=== PATIENT | male | born 1935 | race Caucasian/White ===

== ENCOUNTER 2021-04-09 13:45 | Inpatient (IN) | payer BC ==
[~2021-04-09] VITALS: Ht 170.2 cm; Wt 90.7 kg
[2021-04-09] MEDS ORDERED: IV NORMAL SALINE 500 ML BAG IV ONE (14:00)
[2021-04-09] MEDS ORDERED: HYDROMORPHONE 1 MG/1 ML DISP.SYRIN IV ONE ×4 (14:00→21:15)
[2021-04-09] MEDS ORDERED: LIPITOR (14:05)
[2021-04-09] MEDS ORDERED: NORVASC (14:05)
[2021-04-09] MEDS ORDERED: VALTREX (14:05)
[2021-04-09] MEDS ORDERED: SYNTHROID (14:05)
[2021-04-09] MEDS ORDERED: NEURONTIN (14:05)
[2021-04-09] MEDS ORDERED: METFORMIN (14:05)
[2021-04-09] MEDS ORDERED: HYDROMORPHONE 1 MG/1 ML DISP.SYRIN ONE ×4 (14:24→21:34)
[2021-04-09 14:40] LABS: HEMATOCRIT 38.4 % (36.7-47.1); MEAN CORPUSCULAR HEMOGLOBIN 28.3 uug (23.8-33.4); MEAN CORPUSCULAR VOLUME 83.8 fL (73.0-96.2); PLATELET COUNT (AUTO) 431 K/uL (152-348)
[2021-04-09 14:47] LABS: CARBON DIOXIDE 24 mmol/L (21-32); CHLORIDE 103 mmol/L (98-107); CREATININE 1.6 mg/dL (0.6-1.3); GLUCOSE 107 mg/dL (74-106); POTASSIUM 3.5 mmol/L (3.5-5.1); UREA NITROGEN, BLOOD 42 mg/dL (7-18)
[2021-04-09 14:53] LABS: ALANINE AMINOTRANSFERASE 17 U/L (16-63); ALKALINE PHOSPHATASE 54 U/L (50-136); ASPARTATE AMINOTRANSFERASE 16 U/L (15-37); BILIRUBIN,DIRECT 0.1 mg/dL (0.0-0.2); BILIRUBIN,TOTAL 0.3 mg/dL (0.2-1.0); TOTAL PROTEIN, SERUM 7.3 g/dL (6.4-8.2)
[2021-04-09 14:55] LABS: ACETAMINOPHEN < 2.0 ug/mL (10-30)
[2021-04-09 14:58] LABS: MAGNESIUM 1.9 mg/dL (1.8-2.4); PHOSPHOROUS 3.1 mg/dL (2.5-4.9)
[2021-04-09 15:00] LABS: THYROID STIMULATING HORMONE 2.352 mIU/mL (0.358-3.740)
[2021-04-09] MEDS ORDERED: IV NS 1000 ML 1,000 ML IV ONE (15:15)
[2021-04-09 16:08] LABS: ETHANOL < 3 MG/DL (0-0)
[2021-04-09] MEDS ORDERED: VANCOMYCIN IV 1,500 MG in IV DEXTROSE 5% 500 ML IV STA (16:55)
[2021-04-09] MEDS ORDERED: CEFTRIAXONE 2 G in IV DEXTROSE 5% 100 ML IV ONE (17:00)
[2021-04-09] MEDS ORDERED: VANCOMYCIN IV 200 ML ONE (17:50)
--- NOTE | 2021-04-09 19:15 | NUR ---
Assumed care of patient from day shift nurse Diane. Patient is here for c/o of pain on neck area d/t shingles.
[2021-04-09] MEDS ORDERED: CEFTRIAXONE 1 G VIAL ONE (20:00)
[2021-04-09] MEDS ORDERED: VANCOMYCIN HCL 500 MG VIAL ONE (20:00)
[2021-04-09] MEDS ORDERED: CEFTRIAXONE /D5W 50ML IVPB **ER PYXIS IV ONE (20:00)
--- NOTE | 2021-04-09 20:35 | NUR ---
Epic panel call placed, spoke to Ritika, stated she will get a hold of SHOW WORKER Angelica for admitting.
--- NOTE | 2021-04-09 20:38 | NUR ---
Dr Snell on panel call with MICHELLE Dominguez. Patient accepted for admission to tele unit, Dx janice Nava.
[2021-04-09] MEDS ORDERED: MAGNESIUM HYDROXIDE 30 ML LIQUID UDC PO PRN (20:45)
[2021-04-09] MEDS ORDERED: ONDANSETRON 4 MG/2 ML VIAL IV PRN (20:45)
[2021-04-09] MEDS ORDERED: Z GUARD REMEDY PASTE 57 GM TUBE TOP PRN (20:45)
[2021-04-09] MEDS ORDERED: GABAPENTIN 400 MG CAPSULE PO SCH (21:00)
--- NOTE | 2021-04-09 22:50 | NUR ---
Pt. admitted to telemetry floor, room 329, under care of MICHELLE Dominguez. Belongs List completed
--- NOTE | 2021-04-09 22:55 | NUR ---
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 PATIENT ASSISTED TO TOILET FOR ELIMINATIONS, COOPERATIVE WITH CARE AT THIS TIME. CONT TO MONITOR. PATIENT HAS NO SOB NO CHEST PAIN, TELE MONITOR SINUS RHYTHM SINUS NELSON, CONT TO MONITOR.
[2021-04-10] MEDS: ENOXAPARIN SODIUM 40 MG/0.4 ML DISP.SYRIN SQ SCH ×3 (00:09→09:00)
[2021-04-10 00:11] VITALS: BP 124/51
[2021-04-10] MEDS: MORPHINE SULFATE 2 MG/1 ML DISP.SYRIN IV PRN ×4 (02:08→21:18)
--- NOTE | 2021-04-10 03:29 | NUR ---
PATIENT RESTLESS, PACING, AGITATED, NOTIFY DR. BROWN WITH ORDER.
[2021-04-10] MEDS ORDERED: HALOPERIDOL DECANOATE 50 MG/1 ML AMPUL IM PRN ×2 (03:30→03:45)
[2021-04-10] MEDS ORDERED: HALOPERIDOL LACTATE 5 MG/1 ML VIAL IM PRN (04:00)
[2021-04-10 04:29] VITALS: BP 125/49
--- NOTE | 2021-04-10 06:38 | NUR ---
PATIENT ASLEEP BUT AROUSABLE, PATIENT CALM DOWN AT AWHILE, TELE MONITOR SINUS RHYTHM SINUS NELSON ON 50'S, PATIENT COMPLAIN OF PAIN ON POSTERIOR NECK SHINGLES, WILL MEDICATED ORDER, PATIENT REMAIN ON CONTACT ISOLATION, CONT TO MONITOR.
[2021-04-10 07:06] LABS: HEMATOCRIT 39.1 % (36.7-47.1); MEAN CORPUSCULAR HEMOGLOBIN 28.5 uug (23.8-33.4); MEAN CORPUSCULAR VOLUME 84.8 fL (73.0-96.2); PLATELET COUNT (AUTO) 456 K/uL (152-348)
[2021-04-10 07:31] LABS: CREATININE 1.2 mg/dL (0.6-1.3); PHOSPHOROUS 3.2 mg/dL (2.5-4.9); POTASSIUM 3.9 mmol/L (3.5-5.1)
[2021-04-10] MEDS ORDERED: GABAPENTIN 300 MG CAPSULE PO SCH ×2 (09:24→12:45)
[2021-04-10 11:46] VITALS: BP 94/36
[2021-04-10] MEDS ORDERED: METF-440 PO (13:40)
[2021-04-10] MEDS ORDERED: GABA-532 PO (13:45)
[2021-04-10] MEDS ORDERED: OLME1TAB19 PO (13:45)
[2021-04-10] MEDS: GABAPENTIN 300 MG CAPSULE PO SCH ×2 (15:09→20:00)
[2021-04-10 15:52] VITALS: BP 116/49
[2021-04-10] MEDS: METFORMIN HCL 500 MG TABLET PO SCH (17:46)
--- NOTE | 2021-04-10 19:35 | NUR ---
Patient resting in bed. AOx1-2. forgetful. On room air. No signs of acute distress. Patient complained of pain, Morphine PRN given as ordered. Patient has episodes of confusion trying to walk out of room. Patient redirectable. Patient compliant with medications and care. Will endorse to incoming shift for continuity of care.
[2021-04-10 20:25] VITALS: BP 118/54
[2021-04-11] MEDS: ENOXAPARIN SODIUM 40 MG/0.4 ML DISP.SYRIN SQ SCH ×2 (02:42→21:00)
--- NOTE | 2021-04-11 03:00 | NUR ---
patient refused lovenox. patient complain of pain of posterior neck but refused pain medications.
[2021-04-11 04:21] VITALS: BP 104/47
[2021-04-11] MEDS: GABAPENTIN 300 MG CAPSULE PO SCH ×3 (06:31→21:13)
[2021-04-11] MEDS: METFORMIN HCL 500 MG TABLET PO SCH ×2 (08:22→16:58)
[2021-04-11] MEDS: MORPHINE SULFATE 2 MG/1 ML DISP.SYRIN IV PRN ×2 (10:26→14:32)
[2021-04-11 12:00] VITALS: BP 111/50
[2021-04-11] MEDS ORDERED: PREGABALIN 50 MG CAPSULE PO SCH (12:00)
[2021-04-11] MEDS ORDERED: LIDOCAINE 5% OINT 35.44 GM TUBE TOP PRN (12:30)
[2021-04-11] MEDS: PREGABALIN 25 MG CAPSULE PO SCH ×2 (13:06→21:14)
[2021-04-11 16:00] VITALS: BP 103/45
--- NOTE | 2021-04-11 17:28 | NUR ---
Patient is AOx1-2. forgetful. On room air. No signs of acute distress. Patient complained of pain, Morphine PRN given as ordered. Patient has episodes of confusion attempted to get out of bed at time.. Patient needs redirect at all time. Patient compliant with medications and care. Will endorse to incoming shift for continuity of care.
[2021-04-11 20:18] VITALS: BP 105/52
--- NOTE | 2021-04-12 03:20 | NUR ---
Received pt on bed with no respiratory distress noted. He is alert and oriented 1-2, forgetful. Refused Lovenox, per pt he cannot tolerate any pain. Risks and benefits explained, still refused. Oral meds given and tolerated well. All needs attended. Call light placed within reach and encouraged to use for assistance. Will continue to monitor.
[2021-04-12 04:47] VITALS: BP 123/53
[2021-04-12] MEDS: GABAPENTIN 300 MG CAPSULE PO SCH ×3 (05:17→21:27)
[2021-04-12] MEDS: PREGABALIN 25 MG CAPSULE PO SCH (05:18)
[2021-04-12] MEDS: MORPHINE SULFATE 2 MG/1 ML DISP.SYRIN IV PRN (05:33)
--- NOTE | 2021-04-12 06:07 | NUR ---
Pt slept intermittently throughout the night, easily arousable for care. On room air, no respiratory distress noted. New IV line inserted on R hand #20, c/o pain 8/10 with morphine IN PRN given. All needs attended. Frequent visual checks done. Will endorse for continuity of care.
[2021-04-12 06:18] LABS: HEMATOCRIT 35.7 % (36.7-47.1); MEAN CORPUSCULAR HEMOGLOBIN 27.9 uug (23.8-33.4); MEAN CORPUSCULAR VOLUME 85.5 fL (73.0-96.2); PLATELET COUNT (AUTO) 384 K/uL (152-348)
[2021-04-12 06:45] LABS: CARBON DIOXIDE 29 mmol/L (21-32); CHLORIDE 107 mmol/L (98-107); CREATININE 1.4 mg/dL (0.6-1.3); GLUCOSE 94 mg/dL (74-106); MAGNESIUM 2.1 mg/dL (1.8-2.4); POTASSIUM 3.8 mmol/L (3.5-5.1); UREA NITROGEN, BLOOD 36 mg/dL (7-18)
--- NOTE | 2021-04-12 07:20 | NUR ---
Received patient asleep in bed. AOx2-3. On room air. No signs of acute distress. Bed locked and in low position fo safety. Call light within reach. Will continue to monitor.
[2021-04-12] MEDS: METFORMIN HCL 500 MG TABLET PO SCH ×2 (08:27→17:10)
[2021-04-12] MEDS: IV NS 1000 ML 1,000 ML IV PRN (11:03)
[2021-04-12 11:55] VITALS: BP 102/50
[2021-04-12] MEDS ORDERED: LEVOTHYROXINE SODIUM 75 MCG TABLET PO ONE (13:50)
[2021-04-12 15:56] VITALS: BP 118/48
[2021-04-12] MEDS: ASPIRIN EC 325 MG TABLET.DR PO PRN (17:10)
[2021-04-12] MEDS: PREGABALIN 50 MG CAPSULE PO SCH ×2 (17:10→23:20)
--- NOTE | 2021-04-12 18:42 | NUR ---
Patient resting in bed. AOx2-3, forgetful at times. On room air. No signs of acute distress. Patient complained of pain, pain medications given. IV access patent and intact. Compliant with medications and care. Safety measures provided. Needs anticipated and met. Call light within reach. Will endorse to incoming shift for continuity of care.
--- NOTE | 2021-04-12 19:50 | NUR ---
PATIENT ALERT BUT FORGETFUL, NO SOB NO CHEST PAIN, CONT ON PAIN MANAGEMENT DUE SHINGLES ON POSTERIOR NECT, R EAR, UPPER CHEST. PATIENT USES URINAL FOR ELIMINATIONS, PATIENT MULTIPLE SHINGLES SITE STILL OPEN, KEPT SITE CLEAN AND DRY, PROVIDE CLEAN LINEN. CONT TO MONITOR.
[2021-04-12 20:00] VITALS: BP 119/57
[2021-04-12] MEDS ORDERED: PREGABALIN 50 MG CAPSULE PO SCH (21:00)
[2021-04-12] MEDS: DULOXETINE 30 MG CAPSULE.DR PO SCH (21:25)
[2021-04-13] MEDS: ACETAMINOPHEN 325 MG TABLET PO PRN ×2 (02:56→08:30)
[2021-04-13 04:00] VITALS: BP 114/53
[2021-04-13] MEDS: GABAPENTIN 300 MG CAPSULE PO SCH ×2 (05:57→20:06)
[2021-04-13] MEDS: LEVOTHYROXINE SODIUM 75 MCG TABLET PO SCH (06:02)
--- NOTE | 2021-04-13 07:07 | NUR ---
PATIENT ASLEEP BUT AROUSABLE, NO SOB NO CHEST PAIN, CONT ON PAIN MANAGEMENT DUE POSTERIOR NECK, RIGHT EAR, UPPER CHEST SHINGLES. PATIENT COOPERATIVE WITH CARE AT THIS TIME, REMAINS ON CONTACT ISOLATION,
--- NOTE | 2021-04-13 07:12 | NUR ---
MEDICATION LYRICA NOT AVAILABLE WILL ENDORSED TO NEXT SHIFT.
--- NOTE | 2021-04-13 07:30 | NUR ---
awake, in the bathroom. no acute distress. iv intact and fluids ongoing. c/o pain in the back of neck and wants medication. informed him i'll see what he has. assisted back to bed. safety measures on. kept comfortable. call light in reach.
[2021-04-13 08:20] VITALS: BP 116/83
[2021-04-13] MEDS: METFORMIN HCL 500 MG TABLET PO SCH ×2 (08:29→18:21)
[2021-04-13] MEDS: ENOXAPARIN SODIUM 40 MG/0.4 ML DISP.SYRIN SQ SCH (08:41)
--- NOTE | 2021-04-13 08:42 | NUR ---
re: Vilma- unable to retrieve. not enough loaded in [employer]. pharmacy aware and will send medication.
[2021-04-13] MEDS: PREGABALIN 50 MG CAPSULE PO SCH ×3 (09:25→21:46)
--- NOTE | 2021-04-13 11:38 | NUR ---
called back dtr eric gayle and left .
[2021-04-13 12:00] VITALS: BP 104/54
[2021-04-13] MEDS ORDERED: OXYCODONE/APAP 5-325 MG TABLET PO ONE ×2 (13:15→19:45)
[2021-04-13 16:25] VITALS: BP 98/56
[2021-04-13] MEDS: IV NS 1000 ML 1,000 ML IV PRN (16:35)
--- NOTE | 2021-04-13 18:30 | NUR ---
contacted dr. ramirez about patient's request for pain medication tonight and that dtr wants to speak with him but no reply. informed security operations specialist jessica. will endorse
--- NOTE | 2021-04-13 18:58 | NUR ---
no acute distress. iv fluids ongoing tolerated. safety measures kept in place. will endorse accordingly.
--- NOTE | 2021-04-13 19:38 | NUR ---
Pt had unwitnessed fall in his room. Per patient's info, he was going to the station to ask for pain medication suddenly felt dizzy and got down on one knee and slowly laid down on the floor. No acute distress noted. Assisted back to bed. Pt said he didn't hit his head. No open wound. VS 116/50, t 98, hr 62, rr18 96% on room air. No sob. Informed [employer] Technologist with order for percocet 5/325 x 1 dose and PT eval noted. Called dtr Maria M Conley but no answer and unable to leave message due to vm full. Charge nurses aware. Endorsed.
[2021-04-13] MEDS: DULOXETINE 30 MG CAPSULE.DR PO SCH (20:06)
--- NOTE | 2021-04-13 20:30 | NUR ---
PATIENT IN BED ALERT AWAKE, ABLE TO MOVED ALL FOUR EXTREMITIES WITHOUT DIFFICULTY, NO VISIBLE SIGNS OF INJURY, PATIENT COMPLAIN OF PAIN ON POSTERIOR NECK AND R EAR SHINGLES RASHES, GIVEN PO PAIN MEDICATIONS ORDERED. PATIENT WAS MOVED TO A ROOM CLOSER TO THE STATION TO PREVENT ANOTHER FALL, BED ALARM IS ON, FREQUENT VISUAL CHECK DONE, CONT TO MONITOR.
[2021-04-13 20:40] VITALS: BP 116/50
--- NOTE | 2021-04-13 21:00 | NUR ---
PATIENT DAUGHTER FLOR WAS NOTIFIED REGARDING THE INCIDENT OF FALL.
--- NOTE | 2021-04-13 23:38 | NUR ---
PATIENT ASSISTED TO TOILET, AMBULATE WITHOUT DIFFICULTY, CONT TO MONITOR.
--- NOTE | 2021-04-14 00:11 | NUR ---
PATIENT KEPT GET OUT OF BED, MULTIPLE TIMES, UNCOOPERATIVE WITH CARE, PATIENT APPARENTLY HAS NO PAIN AT THIS TIME, KEPT ROOM ON COMFORTABLE TEMPERATURE, KEPT ROOM DIM, AND PROVIDE QUIET ENVIRONMENT. PATIENT MOVES FREELY, NO COMPLAIN OF PAIN, CONT TO MONITOR.
[2021-04-14] MEDS: OXYCODONE/APAP 5-325 MG TABLET PO PRN ×2 (02:41→18:07)
--- NOTE | 2021-04-14 03:28 | NUR ---
PATIENT REFUSED IV HYDRATION, GETS AGITATED WHEN IT BEEPS, ATTEND IV IT IT BEEP, BUT DOESNT WANT THE IV CONNECTED.
[2021-04-14 04:30] VITALS: BP 130/54
[2021-04-14] MEDS: PREGABALIN 50 MG CAPSULE PO SCH ×3 (05:03→20:39)
[2021-04-14] MEDS: LEVOTHYROXINE SODIUM 75 MCG TABLET PO SCH (06:18)
[2021-04-14 06:22] LABS: HEMATOCRIT 36.2 % (36.7-47.1); MEAN CORPUSCULAR HEMOGLOBIN 28.4 uug (23.8-33.4); MEAN CORPUSCULAR VOLUME 85.1 fL (73.0-96.2); PLATELET COUNT (AUTO) 413 K/uL (152-348)
--- NOTE | 2021-04-14 06:23 | NUR ---
PATIENT CONTINUE TO REFUSED IV HYDRATION, NOTED PATIENT STANDING IN HIS ROOM, AMBULATE TO TOILET, NO S/S OF PAIN AT THIS TIME, PAIN MEDS EFFECTIVE. FREQUENT VISUAL CHECK DONE, CONT TO MONITOR.
[2021-04-14 06:31] LABS: CREATININE 1.1 mg/dL (0.6-1.3); POTASSIUM 4.3 mmol/L (3.5-5.1)
[2021-04-14] MEDS: ENOXAPARIN SODIUM 40 MG/0.4 ML DISP.SYRIN SQ SCH (09:00)
[2021-04-14] MEDS: GABAPENTIN 300 MG CAPSULE PO SCH ×2 (09:45→20:38)
[2021-04-14] MEDS: METFORMIN HCL 500 MG TABLET PO SCH ×2 (09:45→17:07)
[2021-04-14] MEDS: ASPIRIN EC 325 MG TABLET.DR PO PRN (11:05)
[2021-04-14 11:33] VITALS: BP 118/51
[2021-04-14] MEDS ORDERED: LEVO75TA7 PO (12:14)
[2021-04-14] MEDS ORDERED: OXYC-117 PO (12:14)
[2021-04-14] MEDS ORDERED: PREG50CA PO (12:14)
[2021-04-14] MEDS ORDERED: DULO30CA2 PO (12:18)
[2021-04-14 15:39] VITALS: BP 99/54
[2021-04-14 20:10] VITALS: BP 141/57
[2021-04-14] MEDS: DULOXETINE 30 MG CAPSULE.DR PO SCH (20:39)
[2021-04-14] MEDS: IV NS 1000 ML 1,000 ML IV PRN (21:18)
--- NOTE | 2021-04-14 21:49 | NUR ---
Patient AAOX2 confused mental state, BRP, refused of IV fluid and removed of IV access so report to DO Jorge Wagner will continue to monitor
[2021-04-15 04:15] VITALS: BP 113/41
[2021-04-15] MEDS: PREGABALIN 50 MG CAPSULE PO SCH (05:37)
[2021-04-15] MEDS: LEVOTHYROXINE SODIUM 75 MCG TABLET PO SCH (06:17)
[2021-04-15] MEDS: METFORMIN HCL 500 MG TABLET PO SCH (08:12)
[2021-04-15] MEDS: ENOXAPARIN SODIUM 40 MG/0.4 ML DISP.SYRIN SQ SCH (08:13)
[2021-04-15] MEDS ORDERED: PREG150C PO (10:16)
[2021-04-15] MEDS: OXYCODONE/APAP 5-325 MG TABLET PO PRN (10:18)
[2021-04-15] MEDS ORDERED: ASPI-610 PO (10:19)
--- NOTE | 2021-04-15 11:45 | NUR ---
Discharged patient to home with HH. Patient AOx1-2. On room air. No signs of acute distress. Vital signs WNL. Discharge instructions given to patient with family at bedside. Belongings accounted for and belongings list signed. Wound pictures taken and placed in chart. ID armband removed. Patient wheeled to hospital lobby. Patient left hospital with family via private car.
== END 2021-04-15 11:30 | disposition home health service (06) | DRG 73 ==
LOC: ER 13:45 → TELE3 22:34 → MEDSURG3 04-10 09:40 → CSC3 04-13 20:15 → MEDSURG3 04-13 20:18
PROVIDERS: ADMIT Nurse Practitioner Acute Care; ATTEND Nurse Practitioner Family
DX: B02.29 Other postherpetic nervous system involvement (principal); N17.0 Acute kidney failure with tubular necrosis; G93.41 Metabolic encephalopathy; E87.2 Acidosis; G30.9 Alzheimer's disease, unspecified; F02.80 Dementia in other diseases classified elsewhere, unspecified severity, without behavioral disturbance, psychotic disturbance, mood disturbance, and anxiety; E86.0 Dehydration; E03.9 Hypothyroidism, unspecified; E11.9 Type 2 diabetes mellitus without complications; E78.5 Hyperlipidemia, unspecified; I10 Essential (primary) hypertension; Z86.73 Personal history of transient ischemic attack (TIA), and cerebral infarction without residual deficits; Z79.84 Long term (current) use of oral hypoglycemic drugs; M54.81 Occipital neuralgia; Z20.822 Contact with and (suspected) exposure to COVID-19
CPT/HCPCS: 36415; 70030-TC; 70450; 71045; 72125; 76770; 83605; 83735; 84100; 84443; 85025; 85730; 87040; 93005; 97161; A4663; G0378; G0480; J0696; J1170; J1650; J2270; J3370; J7030; J7040; J7060